=== PATIENT | male | born 1955 | race Caucasian/White ===

== ENCOUNTER 2016-07-16 05:12 | Emergency (ER) | payer MEDICAID ==
[2016-07-16] MEDS ORDERED: Ketorolac 30 MG/ML SDV IVPUSH ONE (05:14)
[2016-07-16] MEDS ORDERED: Ondansetron 4 MG/2 ML SDV IVPUSH ONE (05:14)
[2016-07-16] MEDS ORDERED: diphenhydrAMINE 50 MG/ML SDV IVPUSH ONE (05:14)
[2016-07-16] MEDS ORDERED: Sodium Chloride 0.9% 1,000 ML IV ONE (05:14)
[2016-07-16] MEDS ORDERED: Metoclopramide 10 MG/2 ML SDV IVPUSH ONE (05:14)
--- NOTE | 2016-07-16 06:16 | EDM.PDOC ---
ED HPI GENERAL MEDICAL PROBLEM - General Chief Complaint: Headache Stated Complaint: NECK PAIN/DIZZY Time Seen by Provider: 07/16/16 06:16 - History of Present Illness INITIAL COMMENTS - FREE TEXT/NARRATIVE: HISTORY AND PHYSICAL: History of present illness: Patient 60-year-old male presents with severe migraine headache he has a long history of migraine headaches she also has history of coronary disease he states that his headache is a typical migraine he denies any trauma fever chills nausea vomiting. Review of systems: As per history of present illness and below otherwise all systems reviewed and negative. Past medical history: As per history of present illness and as reviewed below otherwise noncontributory. Surgical history: As per history of present illness and as reviewed below otherwise noncontributory. Social history: No reported history of drug or alcohol abuse. Family history: As per history of present illness and as reviewed below otherwise noncontributory. Physical exam: HEENT: Atraumatic, normocephalic, pupils reactive, negative for conjunctival pallor or scleral icterus, mucous membranes moist, throat clear, neck supple, nontender, trachea midline. Lungs: Clear to auscultation, breath sounds equal bilaterally, chest nontender. Heart: S1S2, regular, negative for clicks, rubs, or JVD. Abdomen: Soft, nondistended, nontender. Negative for masses or hepatosplenomegaly. Negative for costovertebral tenderness. Pelvis: Stable nontender. Genitourinary: Deferred. Rectal: Deferred. Extremities: Atraumatic, negative for cords or calf pain. Neurovascular unremarkable. Neuro: Awake, alert, oriented. Cranial nerves II through XII unremarkable. Cerebellum unremarkable. Motor and sensory unremarkable throughout. Exam nonfocal. Diagnostics: CBC CMP troponin EKG chest x-ray Therapeutics: Toradol 30 mg IV Benadryl 50 mg IV Reglan 10 mg IV Zofran 4 mg IV Impression: #1 migraine headache #2 history of coronary artery disease Definitive disposition and diagnosis as appropriate pending reevaluation and review of above. headache Pain Score (Numeric/FACES): 9 - Related Data Allergies Allergy/AdvReac Type Severity Reaction Status Date / Time unknown antibiotic Allergy Other Uncoded 07/16/16 05:29 Home Meds: Home Meds Lisinopril/Hydrochlorothiazide [Lisinopril-Hctz 20-25 mg Tab] 1 tab PO ASDIRECTED 11/03/15 [History] Metoprolol Succinate [Toprol XL 100mg] 100 mg PO DAILY 11/03/15 [History] Simvastatin [Zocor] 40 mg PO BEDTIME 11/03/15 [History] Past Medical History Cardiovascular History: Reports: High cholesterol, Hypertension, NM, Stents Musculoskeletal History: Reports: Back pain, chronic Neurological History: Reports: Migraines Psychiatric History: Reports: Anxiety Oncologic (Cancer) History: Reports: Renal Dermatologic History: Reports: Eczema - Infectious Disease History Infectious Disease History: Reports: Chicken pox, Measles - Past Surgical History Cardiovascular Surgical History: Reports: Coronary artery stent GI Surgical History: Reports: Cholecystectomy Male Surgical History: Reports: Other (see below) Other Male Surgeries/Procedures: renal cancer, right kidney removed Other Oncologic Surgeries/Procedures: r kidney removed Social & Family History - Family History Family Medical History: Noncontributory - Tobacco Use Smoking Status *Q: Never Smoker - Recreational Drug Use Recreational Drug Use: No ED ROS GENERAL - Review of Systems Review Of Systems: ROS reveals no pertinent complaints other than HPI. ED EXAM, GENERAL - Physical Exam Exam: See Below (See dictation) Course - Vital Signs Last Recorded V/S: Last Vital Signs Temp 36.6 C 07/16/16 05:30 Pulse 96 07/16/16 05:30 Resp 18 07/16/16 05:30 BP 137/70 07/16/16 05:30 Pulse Ox 97 07/16/16 05:30 - Orders/Labs/Meds Orders: Active Orders 24 hr Category Date Time Status EKG 12 Lead [EKG Documentation Completion] [RC] STAT Care 07/16/16 05:37 Active COMPREHENSIVE METABOLIC PN,CMP [CHEM] Stat Lab 07/16/16 05:36 Received Sodium Chloride 0.9% [Normal Saline] 1,000 ml Med 07/16/16 05:14 Active IV .Bolus Medication Orders Sodium Chloride (Normal Saline) 1,000 mls @ 999 mls/hr IV .Bolus ONE Stop: 07/16/16 06:14 Last Admin: 07/16/16 05:50 Dose: 999 mls/hr Labs: Laboratory Tests 07/16/16 07/16/16 Range/Units 05:36 05:36 WBC 12.25 H (4.0-11.0) K/uL RBC 5.39 (4.50-5.90) M/uL Hgb 14.7 (13.0-17.0) g/dL Hct 42.0 (38.0-50.0) % MCV 77.9 L (80.0-98.0) fL MCH 27.3 (27.0-32.0) pg MCHC 35.0 (31.0-37.0) g/dL RDW Std Deviation 38.4 (28.0-62.0) fl RDW Coeff of Sania 14 (11.0-15.0) % Plt Count 329 (150-400) K/uL MPV 9.70 (7.40-12.00) fL Neut % (Auto) 69.5 (48.0-80.0) % Lymph % (Auto) 22.8 (16.0-40.0) % [place] % (Auto) 6.6 (0.0-15.0) % Eos % (Auto) 0.9 (0.0-7.0) % Baso % (Auto) 0.2 (0.0-1.5) % Neut # (Auto) 8.5 H (1.4-5.7) K/uL Lymph # (Auto) 2.8 H (0.6-2.4) K/uL [place] # (Auto) 0.8 (0.0-0.8) K/uL Eos # (Auto) 0.1 (0.0-0.7) K/uL Baso # (Auto) 0.0 (0.0-0.1) K/uL Nucleated RBC % 0.0 /100WBC Nucleated RBCs # 0 K/uL Troponin I < 0.10 (0.0-0.29) NG/ML Meds: Medications Generic Name Dose Route Start Last Admin Trade Name Freq PRN Reason Stop Dose Admin Sodium Chloride 1,000 mls @ 999 mls/hr 07/16/16 05:14 07/16/16 05:50 Normal Saline IV 07/16/16 06:14 999 mls/hr .Bolus ONE Administration Discontinued Medications Generic Name Dose Route Start Last Admin Trade Name Freq PRN Reason Stop Dose Admin Diphenhydramine HCl 50 mg 07/16/16 05:14 07/16/16 05:57 Benadryl IVPUSH 07/16/16 05:15 50 mg ONETIME ONE Administration Ketorolac Tromethamine 30 mg 07/16/16 05:14 07/16/16 05:50 Toradol IVPUSH 07/16/16 05:15 30 mg ONETIME ONE Administration Metoclopramide HCl 10 mg 07/16/16 05:14 07/16/16 05:53 Reglan IVPUSH 07/16/16 05:15 10 mg ONETIME ONE Administration Ondansetron HCl 4 mg 07/16/16 05:14 07/16/16 05:59 Zofran IVPUSH 07/16/16 05:15 4 mg ONETIME ONE Administration Departure - Departure Time of Disposition: 06:14 Disposition: Home, Self-Care 01 Condition: good Clinical Impression: Migraine Forms: ED Department Discharge Additional Instructions: The following information is given to patients seen in the emergency department who are being discharged to home. This information is to outline your options for follow-up care. We provide all patients seen in our emergency department with a follow-up referral. The need for follow-up, as well as the timing and circumstances, are variable depending upon the specifics of your emergency department visit. If you don't have a primary care physician on staff, we will provide you with a referral. We always advise you to contact your personal physician following an emergency department visit to inform them of the circumstance of the visit and for follow-up with them and/or the need for any referrals to a consulting specialist. The emergency department will also refer you to a specialist when appropriate. This referral assures that you have the opportunity for followup care with a specialist. All of these measure are taken in an effort to provide you with optimal care, which includes your followup. Under all circumstances we always encourage you to contact your private physician who remains a resource for coordinating your care. When calling for followup care, please make the office aware that this follow-up is from your recent emergency room visit. If for any reason you are refused follow-up, please contact the [facility] emergency department at and asked to speak to the emergency department charge nurse. Continue current medications follow up primary medical doctor one to 2 days return as needed as discussed - My Orders Last 24 Hours: My Active Orders 07/16/16 05:14 Sodium Chloride 0.9% [Normal Saline] 1,000 ml IV .Bolus 07/16/16 05:36 COMPREHENSIVE METABOLIC PN,CMP [CHEM] Stat 07/16/16 05:37 EKG 12 Lead [EKG Documentation Completion] [RC] STAT - Assessment/Plan Last 24 Hours: My Active Orders 07/16/16 05:14 Sodium Chloride 0.9% [Normal Saline] 1,000 ml IV .Bolus 07/16/16 05:36 COMPREHENSIVE METABOLIC PN,CMP [CHEM] Stat 07/16/16 05:37 EKG 12 Lead [EKG Documentation Completion] [RC] STAT
[2016-07-16 07:09] VITALS: BP 154/85
== END 2016-07-16 07:00 | disposition home or self-care (01) ==
LOC: MW.ED 05:12
DX: G43.909 Migraine, unspecified, not intractable, without status migrainosus (principal); I25.10 Atherosclerotic heart disease of native coronary artery without angina pectoris; I10 Essential (primary) hypertension; I25.2 Old myocardial infarction; E78.00 Pure hypercholesterolemia, unspecified; Z85.528 Personal history of other malignant neoplasm of kidney; Z79.899 Other long term (current) drug therapy; Z95.5 Presence of coronary angioplasty implant and graft; Z90.49 Acquired absence of other specified parts of digestive tract; Z90.5 Acquired absence of kidney
CPT/HCPCS: 36415; 80053; 84484; 85025; 93005; 96361; 96374; 96375; 99284; J1200; J1885; J2405; J2765; J7040